=== PATIENT | male | born 1950 | race Asian ===

== ENCOUNTER 2017-07-10 09:16 | Day surgery (SDC) | payer OTHER, MEDICAID ==
--- NOTE | 2017-07-02 12:30 | Pre-op HX & Phy Repo 2 SIG ---
The patient is scheduled for cataract surgery by Dr. Greenberg on July 03, 2016. HISTORY OF PRESENT ILLNESS: The patient is a very pleasant 66-year-old gentleman with a history of diabetes, hypertension, hypercholesterolemia presents to my office for preop evaluation for cataract surgery. The patient denies any chest pain, shortness of breath. No dyspnea on exertion. Denies any headaches. No sore throat. Denies any cough. Denies any abdominal pain. No nausea, vomiting. No changes in his bowel habits. Denies any urinary symptoms. No fevers or chills. PAST MEDICAL HISTORY: Includes a history of xaw-wadundz-dvejajvts diabetes mellitus, history of hyperlipidemia, history of hypertension, history of mild stroke in 2006, history of left knee arthroscopy 2005, and history of previous cataract surgery on his right eye and now he is having at his left eye. FAMILY HISTORY: Mother had colon cancer. REVIEW OF SYSTEMS: Twelve point review of systems reviewed negative except for above. SOCIAL HISTORY: Does not drink any alcohol. Does not smoke. He drinks about one coffee a day. He does not exercise much. PHYSICAL EXAMINATION: GENERAL: He is well developed, well nourished, currently in no apparent distress. VITAL SIGNS: Blood pressure 110/70, pulse 70, respirations 18, and he is afebrile. HEENT: Head is normocephalic and atraumatic. Pupils are equal and reactive to light. Extraocular muscles are intact. Eyes are anicteric. NECK: Supple. Full range of motion. No JVP. No bruits. LUNGS: Clear to auscultation bilaterally. HEART: Regular rate and rhythm without murmurs, rubs, gallops. ABDOMEN: Soft. Positive bowel sounds. Nondistended. Nontender. EXTREMITIES: No clubbing, cyanosis, or edema NEUROLOGIC: Nonfocal. ASSESSMENT AND PLAN: The patient is a pleasant 66-year-old gentleman presents to my office for preoperative evaluation for cataract surgery. Preoperative laboratories have been drawn as well EKG. Pending his laboratory results, the patient will be cleared for his proposed procedure. The patient was told not to take any aspirin products for a week prior to surgery. Thank you for allowing me to participate in the care of this patient. Angel Kerr M.D. DR: Zachery JOB#: [id number] CC:
[2017-07-10] VITALS (7 sets, daily range): BP systolic 127–149; BP diastolic 72–88
[~2017-07-10] VITALS: Ht 157.5 cm; Wt 69.4 kg
--- NOTE | 2017-07-10 00:23 | Pre-Procedure Note/Attestation ---
Pre-Procedure Note/Attestation Complete Prior to Procedure Planned Procedure: left - Removal of Cataract and placement of intraocular lens , left eye Procedure Narrative: Removal of cataract and placement of intraocular lens, left eye Indications for Procedure Pre-Operative Diagnosis: Cataract, combined, left eye Attestation I attest that I discussed the nature of the procedure; its benefits; risks and complications; and alternatives (and the risks and benefits of such alternatives ), prior to the procedure, with the patient (or the patient's legal business center representative). I attest that, if there was a reasonable possibility of needing a blood transfusion, the patient (or the patient's legal business center representative) was given the [place] Department [employer] standardized written summary, pursuant to the [place] Blood Safety Act ([place] Health and Safety Code # 1645, as amended). I attest that I re-evaluated the patient just prior to the surgery and that there has been no change in the patient's H&P, except as documented below: Beny Greenberg MD Jul 10, 2017 00:23
[~2017-07-10 09:16] MED LIST: ASPIR 8181 MG ORAL; ATORVASTATIN CA40 MG ORAL; GLIPIZIDE5 MG ORAL; LOSARTAN POTASS25 MG ORAL; METFORMIN HCL500 M1 ORAL; PLAVIX75 MG ORAL; Pred Forte 1% Opth Susp 1ml LEFT EYE ONE; invokana PO; lipitor PO
[2017-07-10] MEDS ORDERED: Tropicamide 1% Opth 15ml Soln ONE (09:40)
[2017-07-10] MEDS ORDERED: Pred Forte 1% Opth Susp 1ml ONE (09:40)
[2017-07-10] MEDS ORDERED: Phenylephrine 10% Opth Soln 5ml ONE (09:40)
[2017-07-10] MEDS ORDERED: Akten 3.5% 1ml Btl ONE (09:40)
[2017-07-10] MEDS ORDERED: Ciprofloxacin Opth Soln 2.5ml ONE (09:40)
[2017-07-10] MEDS ORDERED: Cyclopentolate 1% Opth Sol 2ml ONE (09:40)
[2017-07-10] MEDS: Phenylephrine 10% Opth Soln 5ml LEFT EYE SCH ×3 (10:03→10:31)
[2017-07-10] MEDS: Akten 3.5% 1ml Btl LEFT EYE SCH ×3 (10:04→10:31)
[2017-07-10] MEDS: Tropicamide 1% Opth 15ml Soln LEFT EYE SCH ×3 (10:04→10:31)
[2017-07-10] MEDS: Ciprofloxacin Opth Soln 2.5ml LEFT EYE SCH ×3 (10:04→10:31)
[2017-07-10] MEDS: Cyclopentolate 1% Opth Sol 2ml LEFT EYE SCH ×3 (10:14→10:41)
[2017-07-10] MEDS ORDERED: Lidocaine 1% MPF 10mg/ml 5ml ONE (10:23)
[2017-07-10] MEDS ORDERED: Fluorescein Strips ONE (10:23)
[2017-07-10] MEDS ORDERED: BSS 500ml btl ONE (10:23)
[2017-07-10] MEDS ORDERED: EPINEPHrine 1mg/1ml Amp ONE ×2 (10:24→11:32)
[2017-07-10] MEDS ORDERED: Tetracaine 0.5% Opth 4ml Soln ONE (10:24)
[2017-07-10] MEDS ORDERED: Dexamethasone 4mg/ml vial ONE (10:24)
[2017-07-10] MEDS ORDERED: Povidone-Iodine 5% opth solution ONE (10:24)
[2017-07-10] MEDS ORDERED: BSS 15ml BTL ONE ×2 (10:25→11:33)
[2017-07-10] MEDS ORDERED: Sodium Hyaluronate 10 mg/ml 0.85ml ONE ×2 (10:25→12:56)
[2017-07-10] MEDS ORDERED: Acetylcholine Injection (OR) ONE (10:25)
[2017-07-10] MEDS ORDERED: Bupivacaine 0.75% 30ml vial INJ ONE (10:25)
[2017-07-10] MEDS ORDERED: Lidocaine 2% MPF 5ml Vial INJ ONE ×2 (10:25→11:36)
[2017-07-10] MEDS ORDERED: TOUJEO SOL300 UNIT/1 SQ (10:53)
[2017-07-10] MEDS ORDERED: TANZEUM30 MG/0.5 SQ (10:53)
[2017-07-10] MEDS ORDERED: ZETIA10 MG ORAL (10:53)
[2017-07-10] MEDS ORDERED: REPATHA SY140 MG/1 M SQ (10:53)
[2017-07-10] MEDS ORDERED: Carbachol 0.01% Op Soln 1.5ml vial ONE (11:32)
[2017-07-10] MEDS ORDERED: fentaNYL 100 mcg/2 mL IV PRN (11:45)
--- NOTE | 2017-07-10 11:47 | Anethesia Preoperative Eval ---
Anesthesia Pre-op PMH/ROS General Date of Evaluation: Jul 10, 2017 Time of Evaluation: 11:46 Anesthesiologist: brandy ASA Score: ASA 2 Mallampati Score Class I : Soft palate, uvula, fauces, pillars visible Class II: Soft palate, uvula, fauces visible Class III: Soft palate, base of uvula visible Class IV: Only hard plate visible Mallampati Classification: Class II Surgeon: Dionicio Diagnosis: cataract Surgical Procedure: cataract extraction Anesthesia History: none Family History: no anesthesia problems Allergies: Coded Allergies: No Known Allergies (Unverified , 08/24/14) Medications: see eMAR Past Medical History Cardiovascular: Reports: HTN Pulmonary: Denies: asthma, COPD, ISHMAEL, other Gastrointestinal/Genitourinary: Denies: GERD, CRI, ESRD, other Neurologic/Psychiatric: Reports: CVA - mild Endocrine: Reports: DM HEENT: Reports: cataract (R) Hematology/Immune: Denies: anemia, DVT, bleeding disorder, other Musculoskeletal/Integumentary: Denies: OA, RA, DJD, DDD, edema, other PSxH Narrative: cataract extraction; knee surgery Anesthesia Pre-op Phys. Exam Physician Exam Last Vital Signs Date Time Temp Pulse Resp B/P (MAP) Pulse Ox O2 Delivery O2 Flow Rate FiO2 07/10/17 10:16 97.8 75 18 136/77 100 Room Air Constitutional: NAD Neurologic: CN 2-12 intact Cardiovascular: RRR Respiratory: CTA Gastrointestinal: S/NT/ND Airway Exam Mallampati Classification 3 Mallampati Score: Class II MO: full ROM: full Dentures: no upper, no lower Anesthesia Pre-op A/P Labs Accucheck BS 154 Studies Pre-op Studies: EKG - Sr Risk Assessment & Plan Assessment: denies cp /sob Plan: mac Status Change Before Surgery: No Pre-Antibiotics Drug: none BLAZE MONTILLA CRNA Jul 10, 2017 11:47
[2017-07-10] MEDS ORDERED: Midazolam 2mg/2ml Inj ONE (12:00)
[2017-07-10] MEDS ORDERED: fentaNYL 100 mcg/2 mL IV ONE (12:00)
[2017-07-10] MEDS ORDERED: NS Irrig 1000ml ONE (12:00)
[2017-07-10] MEDS ORDERED: Sterile Water Irrig 1000ml IRRIG ONE (12:00)
[2017-07-10] MEDS ORDERED: Sodium Chloride 10ml vial INJ ONE (12:00)
[2017-07-10] MEDS ORDERED: LR 1000ml ONE (12:00)
[2017-07-10] MEDS ORDERED: Propofol 200mg/20ml IV ONE (12:00)
[2017-07-10] MEDS ORDERED: Maxitrol Opth Oint 3.5gm ONE (12:56)
--- NOTE | 2017-07-10 13:06 | Immediate Post-Op Evaluation ---
Immediate Post-Op Evalulation Immediate Post-Op Evalulation Procedure: cataract extraction Date of Evaluation: Jul 10, 2017 Time of Evaluation: 13:05 IV Fluids: 300 Blood Pressure Systolic: 125 Blood Pressure Diastolic: 72 Pulse Rate: 85 Respiratory Rate: 14 O2 Sat by Pulse Oximetry: 95 Temperature (Fahrenheit): 97.2 Nausea: No Vomiting: No Complications none Patient Status: awake, reacts, patent Hydration Status: adequate Drug: none BLAZE MONTILLA CRNA Jul 10, 2017 13:06
--- NOTE | 2017-07-10 13:07 | Discharge Instructions ---
Discharge Instructions Discharge Instructions Follow Up Orders Keep eye shield on at all times except to place eye drops Continue pre op eye drops Followup tomorrow in Dr Greenberg's office Return to Work/School on: Jul 10, 2017 For Congestive Heart Failure Reminder Report to your physician any weight gain of 5 pounds or more in one week. Beny Greenberg MD Jul 10, 2017 13:07
--- NOTE | 2017-07-10 13:08 | Brief Operative Note ---
Immediate Post Operative Note Operative Note Pre-op Diagnosis: Cataract, combined, left eye Procedure: phaco pc iol, OS Post-op Diagnosis: same as pre-op Surgeon: Lorena Greenberg MD Construction Secretary: none Anesthesiologist: Mitra Aragon CRNA Anesthesia: local, MAC Specimen: none Complications: none Fluids: as noted Implant(s) used?: Yes - julia [id number] wf 20.0 Beny Greenberg MD Jul 10, 2017 13:08
[2017-07-11 13:37] VITALS: BP 135/82
--- NOTE | 2017-07-11 13:37 | 48 Hour Post Anesthesia Eval ---
Post Anesthesia Evaluation Procedure: cataract extraction Date of Evaluation: Jul 11, 2017 Time of Evaluation: 13:36 Blood Pressure Systolic: 135 0: 82 Pulse Rate: 65 Respiratory Rate: 16 Airway: patent Nausea: No Vomiting: No Hydration Status: adequate Cardiopulmonary Status: stable Mental Status/LOC: patient returned to baseline Post-Anesthesia Complications: na Follow-up care needed: N/A BLAZE MONTILLA CRNA Jul 11, 2017 13:37
--- NOTE | 2017-07-12 12:54 | Operative Note - Dictated ---
DATE OF OPERATION: 07/10/2017 SURGEON: Beny Greenberg M.D. SPA MANAGER/ESTHETICIAN SURGEON: None. ANESTHESIOLOGIST: Mitra Elliott CRNA. PREOPERATIVE DIAGNOSIS: Cataract, combined, left eye. POSTOPERATIVE DIAGNOSIS: Cataract, combined, left eye. PROCEDURE: 1. Phacoemulsification of cataract, left eye. 2. Placement of posterior chamber intraocular lens, left eye (Kaleb [id number], power 20.0). SPECIMENS: None. COMPLICATIONS: None. INDICATIONS FOR SURGERY: The patient has had the painless progressive decrease in visual acuity in the left eye secondary to a cataract. The patient understands the risks of surgery including infection, bleeding, need for further surgery, loss of vision, no improvement in the vision, loss of the eye, loss of life, glaucoma, retinal detachment, understands these risks and elects to proceed with surgery. FINDINGS: The patient had a +2 to 3 nuclear sclerotic cataracts as well as +2 cortical cataract and +2 anterior subcapsular cataract that was very central. OPERATIVE NOTE: After informed consent was obtained, the patient was brought into the operating room and placed in the supine position. Cardiac and respiratory monitors were attached. A time-out was performed and all criteria were met and everyone in the room agreed. The left eye was then draped and prepped in a sterile manner for ocular surgery. A lid speculum was placed in the eye. A 1% lidocaine preservative-free was then injected at the 2 o'clock limbus. A conjunctiva peritomy from approximately from 1:30 to 2:30 was made and dissected posteriorly. Hemostasis was maintained with bipolar cautery. A 2.6 mm limbal incision was made, centered approximately 2 o'clock, and dissected anteriorly. A paracentesis was made at approximately 5:31 and Shugarcaine was injected into the anterior chamber followed by Healon. The patient kept moving his eye, so a 6-0 silk stay suture was placed through the superior rectus muscle. The anterior chamber was then entered using a 2.6 mm keratome through the limbal incision. An anterior capsulorrhexis was then performed. Hydrodissection and hydrodelineation of the lens was then performed. The lens was then phacoemulsified using divide and conquer four-quadrant technique. Residual cortical material was then aspirated. The lens was taken from its package, placed into the cartridge, and the tip of the cartridge was placed through the limbal incision and the lens was injected into the capsular bag. Both haptics and the optic were in the capsular bag. This was visualized. Healon was aspirated from the anterior chamber and capsular bag. One 10-0 nylon interrupted suture was then placed through the limbal incision and the knot was rotated and buried. The lens was checked and noted to be slightly rotated such that it was in the 180 degree meridian. Again, the optic and both haptics were in the bag. The wounds were checked and found to be watertight. Both the wounds were hydrated and closed. Again, the wounds were checked and found to be watertight. The conjunctiva was closed with forceps cautery. The lid speculum and drapes were removed from the eye as well as the superior rectus stay suture. Drops of Pred Forte and ciprofloxacin were applied to the eye followed by Maxitrol ointment and then a shield. The patient tolerated the procedure well and left the operating room awake, alert in stable condition. Beny Greenberg M.D. DR: JAMEY JOB#: [id number] CC:
== END 2017-07-10 14:15 | disposition home or self-care (01) ==
LOC: SUR 09:16
DX: H25.12 Age-related nuclear cataract, left eye (principal); H25.012 Cortical age-related cataract, left eye; H25.032 Anterior subcapsular polar age-related cataract, left eye; E11.9 Type 2 diabetes mellitus without complications; I10 Essential (primary) hypertension; E78.00 Pure hypercholesterolemia, unspecified; Z79.4 Long term (current) use of insulin; E78.5 Hyperlipidemia, unspecified; Z86.73 Personal history of transient ischemic attack (TIA), and cerebral infarction without residual deficits; Z80.0 Family history of malignant neoplasm of digestive organs
CPT/HCPCS: 66984; 82962; J0171; J1100; J2250; J2704; J3010; J7120; V2632; 94003; 94150